=== PATIENT | female | born 1980 | race Two or more races ===

== ENCOUNTER 2024-10-06 16:51 | Emergency (ER) | payer MEDICAID ==
[~2024-10-06] VITALS: Ht 157.5 cm; Wt 105.0 kg
[2024-10-06 17:04] VITALS: O2SAT 98
--- NOTE | 2024-10-06 18:36 | DVH ---
CLINICAL INDICATION: R/o fracture TECHNIQUE: 3 radiographic views of the right ankle were obtained. Comparison: None FINDINGS/IMPRESSION: There is no evidence of acute fracture or dislocation. Small plantar calcaneal enthesophyte. The visualized joint space is well maintained. The alignment is anatomical. There is no radiopaque foreign body.
--- NOTE | 2024-10-06 18:37 | DVH ---
CLINICAL INDICATION: R/o fracture TECHNIQUE: 2 radiographic views of the right tibia and fibula were obtained. Comparison: None FINDINGS/IMPRESSION: There is no evidence of acute fracture or dislocation. The visualized joint space is well maintained. The alignment is anatomical. There is no radiopaque foreign body.
--- NOTE | 2024-10-06 18:39 | DVH ---
CLINICAL INDICATION: R/o fracture TECHNIQUE: 3 radiographic views of the right foot were obtained. Comparison: None FINDINGS/IMPRESSION: There is no evidence of acute fracture or dislocation. The visualized joint space is well maintained. The alignment is anatomical. There is no radiopaque foreign body.
--- NOTE | 2024-10-06 18:39 | DVH ---
CLINICAL INDICATION: R/o fracture TECHNIQUE: 4 radiographic views of the right femur were obtained. Comparison: None FINDINGS/IMPRESSION: There is no evidence of acute fracture or dislocation. The visualized joint space is well maintained. The alignment is anatomical. There is no radiopaque foreign body.
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
[2024-10-06] MEDS: ONDANSETRON HCL 4 MG/2 ML VIAL IV ONE (18:55)
[2024-10-06 18:58] VITALS: BP 133/90; PULSE 74; RESP 16
[2024-10-06] MEDS: MORPHINE SULFATE 4 MG/ML SYR/VIAL IV ONE (18:58)
== END 2024-10-06 19:48 | disposition home or self-care (01) ==
LOC: ER 16:51 → EDBD 16:51 → ER 19:48
DX: M79.604 Pain in right leg (principal); Z88.0 Allergy status to penicillin
CPT/HCPCS: 73552; 73590; 73610; 73630; 96374; 96375; 99284; J2270; J2405